=== PATIENT | female | born 1965 | race Caucasian/White ===

== ENCOUNTER → 2016-12-01 | Outpatient (CLI) | payer MEDICAID ==
[2016-12-01 07:14] LABS: Basophils # (A) 0.1 k/uL (0-0.2); Basophils % (A) 1 %; CH 29.7; CHCM 32.8; Eosinophils # (A) 0.2 k/uL (0-0.7); Eosinophils % (A) 5 %; HCT 43.8 % (34.0-46.0); HDW 2.21; HGB 14.8 gm/dL (11.4-16.0); Luc % (Auto) 4; Lymphocytes % (A) 38 %; MCH 30.8 pg (25.0-35.0); MCHC 33.9 g/dL (31.0-37.0); Mean Platelet Volume 6.8; Monocytes # (A) 0.3 k/uL (0-1.0); Monocytes % (A) 5 %; Neutrophils # (A) 2.5 k/uL (1.3-7.7); Neutrophils % (A) 47 %; RBC 4.81 m/uL (3.80-5.40); RDW 12.3 % (11.5-15.5); WBC 5.3 k/uL (3.8-10.6); WBC (Perox) 5.39
[2016-12-01 07:39] LABS: ALT 31 U/L (9-52); AST 31 U/L (14-36); Alkaline Phosphatase 89 U/L (38-126); Anion Gap 8 mmol/L; Blood Urea Nitrogen 23 mg/dL (7-17); Carbon Dioxide 29 mmol/L (22-30); Chloride 103 mmol/L (98-107); Cholesterol 252 mg/dL (<200); Glucose 92 mg/dL (74-99); HDL Cholesterol 50 mg/dL (40-60); Non-African American GFR(MDRD) >60 (>60 ml/min/1.73 sqM); Sodium 140 mmol/L (137-145); Total Bilirubin 0.4 mg/dL (0.2-1.3); Total Protein 7.6 g/dL (6.3-8.2); Triglycerides 168 mg/dL (<150)
== END | disposition home or self-care (01) ==
LOC: LABWHC1 06:38
PROVIDERS: ATTEND Family Medicine
DX: Z00.00 Encounter for general adult medical examination without abnormal findings (principal)
CPT/HCPCS: 36415; 80053; 80061; 84439; 84443; 85025

== ENCOUNTER → 2016-12-21 | Outpatient (CLI) | payer MEDICAID ==
--- NOTE | 2016-12-21 08:27 | XR ---
EXAMINATION TYPE: XR shoulder complete LT DATE OF EXAM: 12/21/2016 7:55 AM COMPARISON: NONE HISTORY: 51-year-old female with pain, evaluate for arthritis, bursitis TECHNIQUE: 3 views FINDINGS: AC joint appears congruent and intact. Subacromial space is preserved without tendinous or bursal bucky cifications. No acute fracture, subluxation, or dislocation. Visualized left hemithorax is clear. IMPRESSION: No acute osseous abnormality seen. No significant degenerative spurring.
== END | disposition home or self-care (01) ==
LOC: RADXRMAIN 07:35
PROVIDERS: ATTEND Emergency Medicine
DX: M75.52 Bursitis of left shoulder (principal); M19.012 Primary osteoarthritis, left shoulder

== ENCOUNTER → 2017-04-19 | Outpatient (CLI) | payer MEDICAID, BC ==
--- NOTE | 2017-04-19 09:46 | P.HPOB ---
History of Present Illness H&P Date: 04/19/17 Chief Complaint: The patient is here for her routine gynecologic exam and mammogram. This is a 52 year old with an LMP of 03/2016. The patient states he has been having occasional hot flashes which are not very bothersome. Certain things seem to trigger the hot flashes including wine or hot drinks. She states he has been drinking green tea which has helped her with her nerves and keeps her calm. Her 's status post vasectomy. She is otherwise without complaints. Review of Systems She has gained about 7 pounds over the last year. She denies respiratory, cardiac or G.I. problems. Past Medical History Past Medical History: No Reported History Past Surgical History: No Surgical Hx Reported Past Psychological History: No Psychological Hx Reported Smoking Status: Never smoker Past Alcohol Use History: Occasional (She has about 1 to 2 alcohol containing drinks per week.) Past Drug Use History: None Reported - Past Family History Mother Additional Family Medical History / Comment(s): Mother has heart disease and has dementia. Medications and Allergies Home Medications and Allergies Comment(s): She denies medication use. Allergies Allergy/AdvReac Type Severity Reaction Status Date / Time Penicillins Allergy Rash/Hives Verified 04/19/17 09:36 Exam - Vital Signs Vital signs: Blood pressure 137/82 height 5'4" weight 158 pounds temperature 98.6 pulse 105. This is a well-developed well-nourished white female who is alert and oriented times 3 in no acute distress. HEENT: Within normal limits. NECK: Supple without mass or thyromegaly. CHEST AND LUNGS: Clear to auscultation. HEART: Regular rate and rhythm. BREASTS: Are without mass or discharge. AXILLARY EXAM: Negative for adenopathy. BACK: Negative for CVA tenderness. ABDOMEN: Soft, nontender, without palpable masses. PELVIC EXAM: Normal external genitalia. Cervix and vagina appear normal with minimal atrophy. There is no unusual discharge. The uterus is midposition, nongravid size and nontender. There are no palpable adnexal masses or tenderness. RECTAL EXAM: recto vaginal exam is negative for mass or tenderness and is negative for occult blood. EXTREMITIES: Nontender. IMPRESSION: 1. 52 year old menopausal female with one year of amenorrhea and vasomotor symptoms. 2. Normal gynecologic exam. PLAN: 1. Pap smear was performed. 2. Self breast exam was discussed. 3. Mammogram will be done today. 4. Osteoporosis prevention was discussed. I have recommended that she take in at least 120% of the daily value of calcium. We also discussed the importance of vitamin D and regular exercise. 5. I have recommended screening colonoscopy because of her age. Dr. Sandoval's card was given to the patient for this. 6. She will return in one year.
--- NOTE | 2017-04-20 13:09 | MM ---
Reason for exam: screening (asymptomatic). Last mammogram was performed 1 year and 3 months ago. History: Patient is postmenopausal. Physical Findings: A clinical breast exam by your physician is recommended on an annual basis and results should be correlated with mammographic findings. MG 3D Screening Mammo W/Cad Bilateral CC and MLO view(s) were taken. Prior study comparison: January 05, 2016, bilateral MG screening mammo w CAD. June 11, 2008, bilateral screening mammogram free. There are scattered fibroglandular densities. No significant changes when compared with prior studies. ASSESSMENT: Negative, BI-RAD 1 RECOMMENDATION: Routine screening mammogram of both breasts in 1 year.
== END ==
LOC: WWCWWP 08:38
PROVIDERS: ATTEND Obstetrics & Gynecology
DX: Z12.31 Encounter for screening mammogram for malignant neoplasm of breast (principal)
CPT/HCPCS: 77063; G0202

== ENCOUNTER → 2017-08-22 | Outpatient (CLI) | payer MEDICAID ==
--- NOTE | 2017-08-23 08:07 | WWPN ---
[facility] - PROGRESS NOTE DATE OF DICTATION: 08/22/2017. CHIEF COMPLAINT: Light vaginal bleeding since 08/15/2017. HPI: This is a 52-year-old G3, P3 with an LMP of 03/2016. She has been amenorrheic for more than 1 year until 08/15/2017 when she started having some vaginal spotting. She states it has never developed into a period like flow. She denies any significant pelvic cramping, but has noticed some moodiness recently. She does not take any supplements or menopausal medications. She was having hot flashes, but these seem to have gotten better during the past 6 months. PAST MEDICAL HISTORY: Unremarkable. MEDICATIONS: None. ALLERGIES: PENICILLIN. REVIEW OF SYSTEMS: Unremarkable. PHYSICAL EXAM: Blood pressure 131/77, height 5 feet 4 inches, weight 156 pounds, temperature 96.4, pulse 80. This is a well-developed, well-nourished, white female, who is alert and oriented x3, in no acute distress. IMPRESSION: 52-year-old menopausal female, with a small amount of postmenopausal bleeding. PLAN: 1. We have had a long discussion regarding postmenopausal bleeding and possible causes. 2. The patient will be scheduled for an endometrial biopsy. If this is benign without significant hyperplasia, we will consider conservative management. If hyperplasia without atypia, consider cyclic progestin therapy. If cancerous or pre cancerous findings, consider hysterectomy. 3. Total time spent with the patient 15 minutes. MMODL / NILESN: [id number] /
== END | disposition home or self-care (01) ==
LOC: CANPRECLI → WWCWWP 13:54
PROVIDERS: ATTEND Obstetrics & Gynecology
DX: Z53.9 Procedure and treatment not carried out, unspecified reason (principal)

== ENCOUNTER → 2017-08-30 | Outpatient (CLI) | payer MEDICAID, BC ==
--- NOTE | 2017-08-30 11:53 | P.PCN ---
Date of Procedure: 08/30/17 Preoperative Diagnosis: Post menopausal bleeding Postoperative Diagnosis: Post menopausal bleeding Procedure(s) Performed: Endometrial biopsy Anesthesia: none Surgeon: Zachary Portillo Estimated Blood Loss (ml): 0 Pathology: other (endometrial tissue) Condition: stable Disposition: same day Indications for Procedure: This was a 52 year old female who developed light vaginal bleeding on 08/15/17 after more than one year of amenorrhea. LNMP was 03/2017. She had minimal spotting again yesterday. Operative Findings: The uterus sounded to 7.5cm. Small amount of tissue was obtained. Description of Procedure: The endometrial biopsy procedure was described to the patient. All of her questions were answered. The patient was placed in the lithotomy position. Bimanual examination was performed. The uterus is made positioned and is non- gravid size. The speculum was inserted and the cervix and vagina were prepped with betadine solution. The anterior lip of the cervix was grasped with an Allys clamp. The 3mm endometrial biopsy curette was placed to the fundus without difficulty. The uterus sounded to 7.5 cm. a [id number] rotating motion was used and a small amount of tissue was obtained and sent for pathological examination. The patient tolerated the procedure well. There were no complications. The post procedure vitals are as follows: blood pressure 129/73. pulse 85. Post procedure instructions were given to the patient.
== END ==
LOC: WWCWWP 10:54
PROVIDERS: ATTEND Obstetrics & Gynecology
DX: N91.2 Amenorrhea, unspecified (principal)
CPT/HCPCS: 88305

== ENCOUNTER 2017-11-06 08:30 | Emergency (ER) | payer MEDICAID, BC ==
[2017-11-06 08:35] VITALS: TEMP 97.9
[2017-11-06] MEDS ORDERED: SODIUM CHLORIDE 0.9% 500 ML IV STA (08:58)
--- NOTE | 2017-11-06 09:01 | ED ---
General Adult HPI - General Chief complaint: Dizziness Stated complaint: Dizziness Time Seen by Provider: 11/06/17 08:30 Source: patient, RN notes reviewed Mode of arrival: ambulatory Limitations: no limitations - History of Present Illness Initial comments: This is a 52-year-old female who comes in complaining of visual disturbance. Patient states there was a jagged line going through her physician at the top of her vision and when she looked down her vision was blurred patient states this lasted for tender 15 minutes. Patient denies any painpatient denies any itching or drainage from the eyes. Patient states the symptoms are completely gone at this time. Patient states she has no headache she's had no numbness or weakness. There was no chest pain palpitations difficulty breathing or shortness of breath. Patient states she did not feel like she was going to pass out. Patient states she was maybe a little bit nauseous. Patient denies any vomiting patient denies diarrhea patient denies any history of fever chills per patient denies any new medications. Patient states she did not eat and thought maybe her sugar was low voltage this never happened before she did take something to eat and feels better now. - Related Data Home Medications Medication Instructions Recorded Confirmed Ibuprofen 400 mg PO Q6H PRN 11/06/17 11/06/17 Allergies Allergy/AdvReac Type Severity Reaction Status Date / Time Penicillins Allergy Rash/Hives Verified 11/06/17 08:48 Review of Systems ROS Statement: Those systems with pertinent positive or pertinent negative responses have been documented in the HPI. ROS Other: All systems not noted in ROS Statement are negative. Past Medical History Past Medical History: No Reported History History of Any Multi-Drug Resistant Organisms: None Reported Past Surgical History: No Surgical Hx Reported Past Psychological History: No Psychological Hx Reported Smoking Status: Never smoker Past Alcohol Use History: Occasional Past Drug Use History: None Reported - Past Family History Mother Additional Family Medical History / Comment(s): Mother has heart disease and has dementia. General Exam - General Exam Comments Initial Comments: GENERAL: Patient is well-developed and well-nourished. Patient is nontoxic and well- hydrated and is in no acute distress. ENT: Neck is soft and supple. No significant lymphadenopathy is noted. Oropharynx is clear. Moist mucous membranes. Neck has full range of motion without eliciting any pain. EYES: The sclera were anicteric and conjunctiva were pink and moist. Extraocular movements were intact and pupils were equal round and reactive to light. Eyelids were unremarkable. PULMONARY: Unlabored respirations. Good breath sounds bilaterally. No audible rales rhonchi or wheezing was noted. CARDIOVASCULAR: There is a regular rate and rhythm without any murmurs gallops or rubs. ABDOMEN: Soft and nontender with normal bowel sounds. SKIN: Skin is clear with no lesions or rashes and otherwise unremarkable. NEUROLOGIC: Patient is alert and oriented x3. Cranial nerves II through XII are grossly intact. Motor and sensory are also intact. Normal speech, volume and content. Symmetrical smile. MUSCULOSKELETAL: Normal extremities with adequate strength and full range of motion. LYMPHATICS: No significant lymphadenopathy is noted PSYCHIATRIC: Normal psychiatric evaluation. Limitations: no limitations Course Vital Signs 11/06/17 08:31 Temperature 97.9 F Pulse Rate 90 Respiratory 18 Rate Blood Pressure 178/90 O2 Sat by Pulse 99 Oximetry Medical Decision Making - Medical Decision Making EKG shows normal sinus rhythm at a rate of 81 bpm MS interval 126 QRS is 88 QT interval 362 QTC is 420. Patient's EKG shows no ST segment elevation or depression or T wave abnormalities are noted. - Lab Data Result diagrams: 11/06/17 09:05 11/06/17 09:05 Lab Results 11/06/17 11/06/17 11/06/17 Range/Units 09:05 09:05 09:05 WBC 7.1 (3.8-10.6) k/uL RBC 4.91 (3.80-5.40) m/uL Hgb 14.9 (11.4-16.0) gm/dL Hct 42.4 (34.0-46.0) % MCV 86.4 (80.0-100.0) fL MCH 30.4 (25.0-35.0) pg MCHC 35.2 (31.0-37.0) g/dL RDW 12.6 (11.5-15.5) % Plt Count 261 (150-450) k/uL Neutrophils % 66 % Lymphocytes % 25 % Monocytes % 4 % Eosinophils % 3 % Basophils % 1 % Neutrophils # 4.7 (1.3-7.7) k/uL Lymphocytes # 1.8 (1.0-4.8) k/uL Monocytes # 0.3 (0-1.0) k/uL Eosinophils # 0.2 (0-0.7) k/uL Basophils # 0.1 (0-0.2) k/uL PT (9.0-12.0) sec INR (<1.2) APTT (22.0-30.0) sec Sodium 143 (137-145) mmol/L Potassium 4.1 (3.5-5.1) mmol/L Chloride 102 (98-107) mmol/L Carbon Dioxide 27 (22-30) mmol/L Anion Gap 14 mmol/L BUN 18 H (7-17) mg/dL Creatinine 0.86 (0.52-1.04) mg/dL Est GFR (CKD-EPI)AfAm >90 (>60 ml/min/1.73 sqM) Est GFR (CKD-EPI)NonAf 80 (>60 ml/min/1.73 sqM) Glucose 102 H (74-99) mg/dL Calcium 10.2 (8.4-10.2) mg/dL Magnesium 1.8 (1.6-2.3) mg/dL Total Bilirubin 0.6 (0.2-1.3) mg/dL AST 38 H (14-36) U/L ALT 35 (9-52) U/L Alkaline Phosphatase 97 (38-126) U/L Total Creatine Kinase 113 (30-135) U/L CK-MB (CK-2) 1.5 (0.0-2.4) ng/mL CK-MB (CK-2) Rel Index 1.3 Troponin I <0.012 (0.000-0.034) ng/mL Total Protein 8.5 H (6.3-8.2) g/dL Albumin 5.0 (3.5-5.0) g/dL Urine Color Urine Appearance (Clear) Urine pH (5.0-8.0) Ur Specific [place] (1.001-1.035) Urine Protein (Negative) Urine Glucose (UA) (Negative) Urine Ketones (Negative) Urine Blood (Negative) Urine Nitrite (Negative) Urine Bilirubin (Negative) Urine Urobilinogen (<2.0) mg/dL Ur Leukocyte Esterase (Negative) Urine RBC (0-5) /hpf Urine WBC (0-5) /hpf Urine Bacteria (None) /hpf Urine Mucus (None) /hpf Urine Opiates Screen (NotDetected) Ur Oxycodone Screen (NotDetected) Urine Methadone Screen (NotDetected) Ur Propoxyphene Screen (NotDetected) Ur Barbiturates Screen (NotDetected) U Tricyclic Antidepress (NotDetected) Ur Phencyclidine Scrn (NotDetected) Ur Amphetamines Screen (NotDetected) U Methamphetamines Scrn (NotDetected) U Benzodiazepines Scrn (NotDetected) Urine Cocaine Screen (NotDetected) U Marijuana (THC) Screen (NotDetected) 11/06/17 11/06/17 Range/Units 09:05 09:13 WBC (3.8-10.6) k/uL RBC (3.80-5.40) m/uL Hgb (11.4-16.0) gm/dL Hct (34.0-46.0) % MCV (80.0-100.0) fL MCH (25.0-35.0) pg MCHC (31.0-37.0) g/dL RDW (11.5-15.5) % Plt Count (150-450) k/uL Neutrophils % % Lymphocytes % % Monocytes % % Eosinophils % % Basophils % % Neutrophils # (1.3-7.7) k/uL Lymphocytes # (1.0-4.8) k/uL Monocytes # (0-1.0) k/uL Eosinophils # (0-0.7) k/uL Basophils # (0-0.2) k/uL PT 9.6 (9.0-12.0) sec INR 1.0 (<1.2) APTT 23.4 (22.0-30.0) sec Sodium (137-145) mmol/L Potassium (3.5-5.1) mmol/L Chloride (98-107) mmol/L Carbon Dioxide (22-30) mmol/L Anion Gap mmol/L BUN (7-17) mg/dL Creatinine (0.52-1.04) mg/dL Est GFR (CKD-EPI)AfAm (>60 ml/min/1.73 sqM) Est GFR (CKD-EPI)NonAf (>60 ml/min/1.73 sqM) Glucose (74-99) mg/dL Calcium (8.4-10.2) mg/dL Magnesium (1.6-2.3) mg/dL Total Bilirubin (0.2-1.3) mg/dL AST (14-36) U/L ALT (9-52) U/L Alkaline Phosphatase (38-126) U/L Total Creatine Kinase (30-135) U/L CK-MB (CK-2) (0.0-2.4) ng/mL CK-MB (CK-2) Rel Index Troponin I (0.000-0.034) ng/mL Total Protein (6.3-8.2) g/dL Albumin (3.5-5.0) g/dL Urine Color Yellow Urine Appearance Clear (Clear) Urine pH 5.5 (5.0-8.0) Ur Specific [place] 1.009 (1.001-1.035) Urine Protein Negative (Negative) Urine Glucose (UA) Negative (Negative) Urine Ketones Negative (Negative) Urine Blood Negative (Negative) Urine Nitrite Negative (Negative) Urine Bilirubin Negative (Negative) Urine Urobilinogen <2.0 (<2.0) mg/dL Ur Leukocyte Esterase Moderate H (Negative) Urine RBC 1 (0-5) /hpf Urine WBC 1 (0-5) /hpf Urine Bacteria Rare H (None) /hpf Urine Mucus Rare H (None) /hpf Urine Opiates Screen Not Detected (NotDetected) Ur Oxycodone Screen Not Detected (NotDetected) Urine Methadone Screen Not Detected (NotDetected) Ur Propoxyphene Screen Not Detected (NotDetected) Ur Barbiturates Screen Not Detected (NotDetected) U Tricyclic Antidepress Not Detected (NotDetected) Ur Phencyclidine Scrn Not Detected (NotDetected) Ur Amphetamines Screen Not Detected (NotDetected) U Methamphetamines Scrn Not Detected (NotDetected) U Benzodiazepines Scrn Not Detected (NotDetected) Urine Cocaine Screen Not Detected (NotDetected) U Marijuana (THC) Screen Not Detected (NotDetected) Disposition Clinical Impression: Visual disturbance Disposition: HOME SELF-CARE Condition: Good Instructions: Blurred Vision (ED) Additional Instructions: Patient should return to emergency department if there are any new recurrent or worsening symptoms Referrals: Candelaria Neal MD [Primary Care Provider] - 1-2 days Time of Disposition: 10:35
[2017-11-06 09:21] LABS: Basophils # (A) 0.1 k/uL (0-0.2); Basophils % (A) 1 %; Eosinophils # (A) 0.2 k/uL (0-0.7); Eosinophils % (A) 3 %; HCT 42.4 % (34.0-46.0); HGB 14.9 gm/dL (11.4-16.0); Lymphocytes # (A) 1.8 k/uL (1.0-4.8); Lymphocytes % (A) 25 %; MCH 30.4 pg (25.0-35.0); MCHC 35.2 g/dL (31.0-37.0); MCV 86.4 fL (80.0-100.0); Mean Platelet Volume 6.8; Monocytes # (A) 0.3 k/uL (0-1.0); Monocytes % (A) 4 %; Neutrophils # (A) 4.7 k/uL (1.3-7.7); Neutrophils % (A) 66 %; Platelet Count 261 k/uL (150-450); RBC 4.91 m/uL (3.80-5.40); RDW 12.6 % (11.5-15.5); WBC 7.1 k/uL (3.8-10.6)
[2017-11-06 09:29] LABS: Partial Thromboplastin Time 23.4 sec (22.0-30.0); Prothrombin Time 9.6 sec (9.0-12.0)
[2017-11-06 09:33] LABS: ALT 35 U/L (9-52); AST 38 U/L (14-36); Alkaline Phosphatase 97 U/L (38-126); Anion Gap 14 mmol/L; Blood Urea Nitrogen 18 mg/dL (7-17); Calcium 10.2 mg/dL (8.4-10.2); Carbon Dioxide 27 mmol/L (22-30); Chloride 102 mmol/L (98-107); Glucose 102 mg/dL (74-99); Magnesium 1.8 mg/dL (1.6-2.3); Potassium 4.1 mmol/L (3.5-5.1); Sodium 143 mmol/L (137-145); Total Bilirubin 0.6 mg/dL (0.2-1.3); Total Protein 8.5 g/dL (6.3-8.2)
[2017-11-06 09:38] LABS: Appearance,Urine Clear (Clear); Bacteria,Urine Rare /hpf; Bilirubin,Urine Negative (Negative); Blood,Urine Negative (Negative); Color,Urine Yellow; Glucose,Urine (UA) Negative (Negative); Ketones,Urine Negative (Negative); Leukocyte Esterase,Urine Moderate (Negative); Mucus,Urine Rare /hpf; Nitrite,Urine Negative (Negative); PH, Urine 5.5 (5.0-8.0); Protein,Urine Negative (Negative); RBC,Urine 1 /hpf (0-5); Specific Gravity,Urine 1.009 (1.001-1.035); Urobilinogen,Urine <2.0 mg/dL (<2.0); WBC,Urine 1 /hpf (0-5)
[2017-11-06 09:53] LABS: Creatine Kinase 113 U/L (30-135)
--- NOTE | 2017-11-06 09:55 | XR ---
EXAMINATION TYPE: XR chest 2V DATE OF EXAM: 11/06/2017 COMPARISON: NONE HISTORY: Dizziness TECHNIQUE: Frontal and lateral views of the chest are obtained. FINDINGS: There is no focal air space opacity, pleural effusion, or pneumothorax seen. The cardiac silhouette size is within normal limits. The osseous structures are intact. Minimal multilevel dege nerative changes of the thoracic spine are noted. IMPRESSION: No acute cardiopulmonary process.
--- NOTE | 2017-11-06 09:57 | CT ---
EXAMINATION TYPE: CT brain wo con DATE OF EXAM: 11/06/2017 COMPARISON: NONE HISTORY: visual changes CT DLP: 1061 mGycm Automated exposure control for dose reduction was used. Helical acquisition through the brain. FINDINGS: There is no hemorrhage or hydrocephalus. Brain density is normal. Calvarium is intact. Inflammatory c hanges present in the ethmoid air cells, sphenoid sinus. There is motion on the exam. IMPRESSION: SINUS DISEASE. NO ACUTE BRAIN ABNORMALITY, CONSIDER BRAIN MRI FOR BETTER EVALUATION INDICATED.
[2017-11-06 10:02] LABS: Amphetamine Screen,Urine Not Detected (NotDetected); Barbiturate Screen,Urine Not Detected (NotDetected); Benzodiazepines Screen,Urine Not Detected (NotDetected); Cocaine Screen,Urine Not Detected (NotDetected); Methadone Screen, Urine Not Detected (NotDetected); Opiate Screen,Urine Not Detected (NotDetected); Oxycodone Screen, Urine Not Detected (NotDetected); Phencyclidine Screen,Urine Not Detected (NotDetected); Tricyclic Antidepressant,Urine Not Detected (NotDetected); Urn Cannabinoid Scrn Not Detected (NotDetected)
[2017-11-06 10:04] LABS: Creatine Kinase MB 1.5 ng/mL (0.0-2.4); Troponin I <0.012 ng/mL (0.000-0.034)
[2017-11-06 10:44] VITALS: BP 140/77; PULSE 81; RESP 16
== END 2017-11-06 10:51 | disposition home or self-care (01) ==
LOC: EC 08:30
DX: H53.9 Unspecified visual disturbance (principal); R42 Dizziness and giddiness; Z88.0 Allergy status to penicillin
CPT/HCPCS: 36415; 70450; 71046; 80053; 80306; 81001; 82550; 82553; 83735; 84484; 85025; 85610; 85730; 93005; 96360; 99284

== ENCOUNTER → 2017-11-10 | Outpatient (CLI) | payer MEDICAID, BC ==
[2017-11-10 20:40] LABS: Cholesterol 247 mg/dL (<200); Glucose 81 mg/dL (74-99); HDL Cholesterol 51 mg/dL (40-60); LDL Cholesterol,Calculated 139 mg/dL (0-99); Triglycerides 283 mg/dL (<150)
[2017-11-11 02:25] LABS: Hemoglobin A1C 5.5 % (4.0-6.0)
== END | disposition home or self-care (01) ==
LOC: MMGSC 16:51
PROVIDERS: ATTEND Family Medicine
DX: Z00.00 Encounter for general adult medical examination without abnormal findings (principal)
CPT/HCPCS: 36415; 80061; 82947; 83036

== ENCOUNTER → 2018-10-11 | Outpatient (CLI) | payer MEDICAID, BC ==
[2018-10-11 16:51] LABS: Basophils % (A) 1 %; Eosinophils # (A) 0.2 k/uL (0-0.7); Eosinophils % (A) 3 %; HCT 41.2 % (34.0-46.0); HGB 13.4 gm/dL (11.4-16.0); Lymphocytes # (A) 2.4 k/uL (1.0-4.8); Lymphocytes % (A) 35 %; MCH 30.5 pg (25.0-35.0); MCHC 32.5 g/dL (31.0-37.0); MCV 93.8 fL (80.0-100.0); Monocytes # (A) 0.3 k/uL (0-1.0); Monocytes % (A) 5 %; Neutrophils # (A) 3.9 k/uL (1.3-7.7); Neutrophils % (A) 56 %; Platelet Count 241 k/uL (150-450); RBC 4.39 m/uL (3.80-5.40); RDW 12.6 % (11.5-15.5); WBC 6.9 k/uL (3.8-10.6)
[2018-10-11 16:55] LABS: Appearance,Urine Clear (Clear); Bilirubin,Urine Negative (Negative); Blood,Urine Negative (Negative); Color,Urine Light Yellow; Glucose,Urine (UA) Negative (Negative); Ketones,Urine Negative (Negative); Leukocyte Esterase,Urine Small (Negative); Mucus,Urine Rare /hpf; Nitrite,Urine Negative (Negative); PH, Urine 5.5 (5.0-8.0); Protein,Urine Negative (Negative); RBC,Urine 1 /hpf (0-5); Specific Gravity,Urine 1.013 (1.001-1.035); Squamous Epithelial Cell,Urine <1 /hpf (0-4); Urobilinogen,Urine <2.0 mg/dL (<2.0); WBC,Urine 6 /hpf (0-5)
[2018-10-11 17:37] LABS: Erythrocyte Sedimentation Rate 13 mm/hr (0-20)
[2018-10-11 23:13] LABS: Protein, Total 6.4 g/dL (6.2-8.2)
[2018-10-11 23:21] LABS: Vitamin D 25 Hydroxy 27.9 ng/mL (30.0-100.0)
[2018-10-12 00:23] LABS: Rheumatoid Factor 124 IU/mL (0-15)
[2018-10-12 00:24] LABS: ALT 31 U/L (8-44); AST 27 U/L (13-35); Albumin/Globulin Ratio 1.87 (1.60-3.17); Alkaline Phosphatase 109 U/L (41-126); C Reactive Protein <0.4 mg/dL (0.0-0.8); Calcium 9.2 mg/dL (8.7-10.3); Carbon Dioxide 30.6 mmol/L (21.6-31.8); Chloride 106 mmol/L (96-109); Creatine Kinase 85 U/L (26-186); Globulin 2.3 g/dL (1.6-3.3); Glucose 89 mg/dL (70-110); Potassium 3.8 mmol/L (3.5-5.5); Sodium 143 mmol/L (135-145); Total Bilirubin 0.3 mg/dL (0.3-1.2); Total Protein 6.6 g/dL (6.2-8.2); Uric Acid 4.5 mg/dL (2.9-7.7)
[2018-10-12 00:55] LABS: Hepatitis C IgG Antibody Non-Reactive (Non-Reactive)
[2018-10-12 01:33] LABS: Anti-DNA, DS unit <1.0 IU/mL; Centromere Antibody Interp POSITIVE (NEGATIVE); DNA Double-Stranded NEGATIVE (NEGATIVE)
[2018-10-12 01:34] LABS: Cyclic Citrullinated Pep IgG NEGATIVE (NEGATIVE); RNP 0.3 AI; Scleroderma SC-70 Ab <0.2 AI
[2018-10-12 01:37] LABS: Cardiolipin Ab IgG Interp NEGATIVE (NEGATIVE); Cardiolipin Ab IgM Interp NEGATIVE (NEGATIVE)
[2018-10-12 12:04] LABS: Angiotensin-1 Converting Enz. 35 U/L (8-52)
[2018-10-12 12:35] LABS: HLA B27 NEGATIVE
[2018-10-12 12:37] LABS: ANA Pattern Speckled
[2018-10-12 13:52] LABS: APTT 36 Sec(s) (<43); Dilute Russell Viper Venom 35 Sec(s) (<44)
[2018-10-12 14:42] LABS: C-ANCA <1:20 Titer (<1:20); P-ANCA <1:20 Titer (<1:20)
--- NOTE | 2018-10-12 15:03 | XR ---
EXAMINATION TYPE: XR chest 2V DATE OF EXAM: 10/11/2018 COMPARISON: None INDICATION: Rheumatoid arthritis TECHNIQUE: Frontal and lateral views of the chest are obtained. FINDINGS: The heart size is normal. The pulmonary vasculature is normal. The lungs are clear. No pleural effusions are evident. Joint spaces appear preserved. Distal clavicl es at the acromioclavicular junctions are normal. There is some scoliosis present. IMPRESSION: 1. No acute pulmonary process. 2. No suspicious changes typical for rheumatoid arthritis.
--- NOTE | 2018-10-12 15:05 | XR ---
EXAMINATION TYPE: XR ankle complete bilateral DATE OF EXAM: 10/11/2018 COMPARISON: None HISTORY: Rheumatoid arthritis, pain TECHNIQUE: 3 views each bilateral ankles FINDINGS: Plantar calcaneal heel spurs are present bilaterally. Ankle mortise is intact. Soft tissues are normal. No erosions are evident. IMPRESSION: 1. Normal appearing bilateral ankles.
--- NOTE | 2018-10-12 15:06 | XR ---
EXAMINATION TYPE: XR cervical spine comp DATE OF EXAM: 10/11/2018 COMPARISON: None HISTORY: Rheumatoid arthritis TECHNIQUE: Five-view cervical spine FINDINGS: Prevertebral space is normal. Minimal degenerative disc change may be present C5-6. Posteri or spinal lamellar line is intact. Foramen are patent. Odontoid appears unremarkable. IMPRESSION: 1. Minimal degenerative disc change C5-6. 2. No suspicious changes to suggest rheumatoid arthritis
--- NOTE | 2018-10-12 15:07 | XR ---
EXAMINATION TYPE: XR wrist complete BILATERAL DATE OF EXAM: 10/11/2018 COMPARISON: None HISTORY: Rheumatoid arthritis TECHNIQUE: Bilateral wrists are examined in 4 projections each. FINDINGS: Joint spaces are preserved. No erosions are evident. No acute fractures or dislocations are evident. Soft tissues are normal. IMPRESSION: 1. Normal bilateral wrists.
--- NOTE | 2018-10-12 15:08 | XR ---
EXAMINATION TYPE: XR hand complete bilateral DATE OF EXAM: 10/11/2018 COMPARISON: None HISTORY: Rheumatoid arthritis TECHNIQUE: 3 views bilateral hands FINDINGS: No acute fractures or dislocations are evident. Soft tissues are normal. No swelling of the digits is evident. Joint spaces appear preserved. No erosions are evident. Patient's ring is on the left hand ring finger. IMPRESSION: 1. Normal bilateral hands.
--- NOTE | 2018-10-12 15:09 | XR ---
EXAMINATION TYPE: XR knee complete bilateral DATE OF EXAM: 10/11/2018 COMPARISON: None HISTORY: Rheumatoid arthritis TECHNIQUE: 3 views bilateral knees. AP standing views were obtained FINDINGS: Joint spaces are preserved. No acute fractures or dislocations are evident. No joint effusions are ev ident. IMPRESSION: 1. Normal bilateral knees.
--- NOTE | 2018-10-12 15:11 | XR ---
EXAMINATION TYPE: XR foot complete bilateral DATE OF EXAM: 10/11/2018 COMPARISON: None HISTORY: Rheumatoid arthritis, pain TECHNIQUE: Bilateral feet are examined in 3 view each. FINDINGS: Bilateral plantar calcaneal heel spurs are present. There may be a small erosion from the p roximal medial portion proximal second digit right foot. This is nonspecific. Joint spaces otherwise appear preserved. No additional periarticular erosions are evident. Soft tissues are within normal li mits. IMPRESSION: 1. Bilateral calcaneal heel spurs. 2. No suspicious acute changes to suggest rheumatoid arthritis by radiographs.
== END | disposition home or self-care (01) ==
LOC: LABWHC1 15:42
PROVIDERS: ATTEND Internal Medicine Rheumatology
DX: M06.89 Other specified rheumatoid arthritis, multiple sites (principal); R76.8 Other specified abnormal immunological findings in serum
CPT/HCPCS: 36415; 71046; 72050; 80053; 81001; 82085; 82164; 82306; 82550; 83883; 84165; 84439; 84443; 84550; 85025; 85613; 85652; 85730; 86038; 86039; 86140; 86147; 86160; 86162; 86200; 86225; 86235; 86255; 86334; 86431; 86803; 86812; 87340

== ENCOUNTER → 2018-10-30 | Outpatient (CLI) | payer MEDICAID, BC ==
[2018-10-30 12:03] LABS: Albumin 4.3 g/dL (3.80-4.90); Albumin/Globulin Ratio 1.95 (1.60-3.17); Anion Gap 6.7 mmol/L (4.00-12.00); Calcium 9.3 mg/dL (8.7-10.3); Carbon Dioxide 29.3 mmol/L (21.6-31.8); Globulin 2.2 g/dL (1.6-3.3); LDL Cholesterol,Calculated 127.2 mg/dL (0.0-131.0); Potassium 4.4 mmol/L (3.5-5.5); Total Bilirubin 0.4 mg/dL (0.3-1.2); Total Protein 6.5 g/dL (6.2-8.2); VLDL Calculation 21.8 mg/dL (5.00-40.00)
== END ==
LOC: LABWHC1 06:42
PROVIDERS: ATTEND Family Medicine
DX: Z00.00 Encounter for general adult medical examination without abnormal findings (principal)
CPT/HCPCS: 36415; 80053; 80061

== ENCOUNTER → 2019-07-15 | Outpatient (CLI) | payer MEDICAID, BC ==
[2019-07-15 07:35] LABS: Basophils # (A) 0.1 k/uL (0-0.2); Basophils % (A) 2 %; Eosinophils # (A) 0.2 k/uL (0-0.7); Eosinophils % (A) 5 %; HCT 44.1 % (34.0-46.0); HGB 14.6 gm/dL (11.4-16.0); Lymphocytes % (A) 31 %; MCH 30.5 pg (25.0-35.0); MCV 92.4 fL (80.0-100.0); Mean Platelet Volume 6.5; Monocytes # (A) 0.2 k/uL (0-1.0); Monocytes % (A) 6 %; Neutrophils # (A) 1.7 k/uL (1.3-7.7); Neutrophils % (A) 54 %; Platelet Count 229 k/uL (150-450); RBC 4.78 m/uL (3.80-5.40); WBC 3.2 k/uL (3.8-10.6)
[2019-07-15 08:04] LABS: Appearance,Urine Clear (Clear); Bilirubin,Urine Negative (Negative); Blood,Urine Negative (Negative); Color,Urine Colorless; Glucose,Urine (UA) Negative (Negative); Ketones,Urine Negative (Negative); Leukocyte Esterase,Urine Negative (Negative); Nitrite,Urine Negative (Negative); PH, Urine 6.5 (5.0-8.0); Protein,Urine Negative (Negative); Specific Gravity,Urine 1.004 (1.001-1.035); Urobilinogen,Urine <2.0 mg/dL (<2.0)
[2019-07-15 10:49] LABS: Erythrocyte Sedimentation Rate 6 mm/hr (0-20)
[2019-07-15 11:24] LABS: Protein, Total 6.6 g/dL (6.2-8.2)
[2019-07-15 11:45] LABS: Complement C3 99.9 mg/dL (80.0-207.0)
[2019-07-15 11:57] LABS: Anti-DNA, DS unit <1.0 IU/mL; Anti-Smith Ab Interp NEGATIVE (NEGATIVE); Cardiolipin Ab IgG Interp NEGATIVE (NEGATIVE); Cardiolipin Ab IgM Interp NEGATIVE (NEGATIVE); Cardiolipin IgA Antibody 2.8 U/mL; Cardiolipin IgM Antibody 0.6 U/mL; Centromere Antibody 3.5 AI; Centromere Antibody Interp POSITIVE (NEGATIVE); Cyclic Citrull Pep IgG Unit <0.5 U/mL; Cyclic Citrullinated Pep IgG NEGATIVE (NEGATIVE); DNA Double-Stranded NEGATIVE (NEGATIVE); Scleroderma SC-70 Ab <0.2 AI
[2019-07-15 12:27] LABS: ALT 31 U/L (8-44); AST 34 U/L (13-35); African American GFR (CKD) 98.2 (60.0-200.0); Albumin/Globulin Ratio 1.95 (1.60-3.17); Alkaline Phosphatase 69 U/L (41-126); BUN/Creat Ratio 18.75 Ratio (12.00-20.00); C Reactive Protein <0.4 mg/dL (0.0-0.8); Calcium 9.1 mg/dL (8.7-10.3); Carbon Dioxide 28.9 mmol/L (21.6-31.8); Chloride 103 mmol/L (96-109); Creatine Kinase 108 U/L (26-186); Globulin 2.2 g/dL (1.6-3.3); Glucose 86 mg/dL (70-110); Non-African American GFR(CKD) 84.8 (60.0-200.0); Potassium 4.6 mmol/L (3.5-5.5); Rheumatoid Factor, Qnt 134 IU/mL (0-15); Sodium 138 mmol/L (135-145); Total Bilirubin 0.4 mg/dL (0.2-1.2); Total Protein 6.5 g/dL (6.2-8.2); Uric Acid 5.3 mg/dL (2.9-7.7)
[2019-07-15 13:43] LABS: Free Kappa Lt Chain Qnt, Serum 1.44 mg/dL (0.33-1.94)
[2019-07-15 18:53] LABS: Hepatitis B Surface Antigen Non-Reactive (Non-Reactive); Hepatitis C IgG Antibody Non-Reactive (Non-Reactive)
[2019-07-16 10:18] LABS: HLA B27 NEGATIVE
[2019-07-16 11:43] LABS: Histone Antibody 1.3 UNITS (<1.0)
[2019-07-16 12:19] LABS: APTT 36 Sec(s) (<43); Dilute Russell Viper Venom 34 Sec(s) (<44)
[2019-07-16 13:02] LABS: Albumin 4.13 g/dL (3.80-4.90); Gamma Globulin 0.94 g/dL (0.70-1.50)
[2019-07-16 13:36] LABS: Angiotensin-1 Converting Enz. 54 U/L (8-52)
[2019-07-16 13:46] LABS: C-ANCA <1:20 Titer (<1:20)
== END | disposition home or self-care (01) ==
LOC: LABWHC1 06:44
PROVIDERS: ATTEND Internal Medicine Rheumatology
DX: M06.89 Other specified rheumatoid arthritis, multiple sites (principal)
CPT/HCPCS: 36415; 80053; 81003; 82088; 82164; 82306; 82550; 83516; 83883; 84165; 84439; 84443; 84550; 85025; 85613; 85652; 85730; 86038; 86140; 86147; 86160; 86162; 86200; 86225; 86235; 86255; 86334; 86431; 86803; 86812; 87340

== ENCOUNTER → 2019-10-25 | Outpatient (CLI) | payer MEDICAID, BC ==
[2019-10-25 07:14] LABS: HCT 44.8 % (34.0-46.0); HGB 14.5 gm/dL (11.4-16.0); MCH 29.8 pg (25.0-35.0); MCHC 32.4 g/dL (31.0-37.0); MCV 92.1 fL (80.0-100.0); Mean Platelet Volume 7.3; Platelet Count 229 k/uL (150-450); RBC 4.86 m/uL (3.80-5.40); RDW 12.2 % (11.5-15.5); WBC 4.3 k/uL (3.8-10.6)
[2019-10-25 10:47] LABS: African American GFR (CKD) 85.2 (60.0-200.0); Albumin 4.5 g/dL (3.80-4.90); Albumin/Globulin Ratio 2.05 (1.60-3.17); Anion Gap 6.5 mmol/L (4.00-12.00); Calcium 9.5 mg/dL (8.7-10.3); Carbon Dioxide 29.5 mmol/L (21.6-31.8); Chol/HDL Ratio 2.8; Globulin 2.2 g/dL (1.6-3.3); LDL Cholesterol,Calculated 117.8 mg/dL (0.0-131.0); Non-African American GFR(CKD) 73.5 (60.0-200.0); Potassium 4.6 mmol/L (3.5-5.5); Total Bilirubin 0.5 mg/dL (0.2-1.2); Total Protein 6.7 g/dL (6.2-8.2); VLDL Calculation 19.2 mg/dL (5.00-40.00)
== END | disposition home or self-care (01) ==
LOC: LABWHC1 06:32
PROVIDERS: ATTEND Physician Assistant
DX: Z00.00 Encounter for general adult medical examination without abnormal findings (principal); E78.5 Hyperlipidemia, unspecified
CPT/HCPCS: 36415; 80053; 80061; 85027

== ENCOUNTER → 2020-01-06 | Outpatient (CLI) | payer MEDICAID, BC ==
[2020-01-06 10:25] LABS: Basophils # (A) 0.1 k/uL (0-0.2); Basophils % (A) 1 %; Eosinophils # (A) 0.2 k/uL (0-0.7); Eosinophils % (A) 5 %; HCT 45.1 % (34.0-46.0); HGB 14.4 gm/dL (11.4-16.0); Lymphocytes # (A) 1.3 k/uL (1.0-4.8); Lymphocytes % (A) 30 %; MCH 29.5 pg (25.0-35.0); MCHC 31.9 g/dL (31.0-37.0); MCV 92.5 fL (80.0-100.0); Mean Platelet Volume 7.3; Monocytes # (A) 0.3 k/uL (0-1.0); Monocytes % (A) 6 %; Neutrophils # (A) 2.4 k/uL (1.3-7.7); Neutrophils % (A) 57 %; Platelet Count 237 k/uL (150-450); RBC 4.88 m/uL (3.80-5.40); RDW 12.5 % (11.5-15.5); WBC 4.3 k/uL (3.8-10.6)
[2020-01-06 13:03] LABS: Erythrocyte Sedimentation Rate 11 mm/hr (0-20)
[2020-01-06 16:29] LABS: ALT 33 U/L (8-44); AST 34 U/L (13-35); African American GFR (CKD) 98.2 (60.0-200.0); BUN/Creat Ratio 18.75 Ratio (12.00-20.00); C Reactive Protein <0.4 mg/dL (0.0-0.8); Calcium 9.8 mg/dL (8.7-10.3); Carbon Dioxide 29.2 mmol/L (21.6-31.8); Chloride 104 mmol/L (96-109); Glucose 87 mg/dL (70-110); Non-African American GFR(CKD) 84.8 (60.0-200.0); Potassium 5.2 mmol/L (3.5-5.5); Sodium 145 mmol/L (135-145)
== END | disposition home or self-care (01) ==
LOC: LABWHC1 09:08
PROVIDERS: ATTEND Physician Assistant
DX: Z51.81 Encounter for therapeutic drug level monitoring (principal); Z79.899 Other long term (current) drug therapy
CPT/HCPCS: 36415; 80048; 84450; 84460; 85025; 85652; 86140

== ENCOUNTER → 2020-02-25 | Outpatient (CLI) | payer MEDICAID, BC ==
--- NOTE | 2020-02-26 10:03 | ECHOF ---
Referral Reason:M34.9 Systemic Sclerosis MEASUREMENTS -------- HEIGHT: 162.6 cm WEIGHT: 63.5 kg BP: RVIDd: 3.6 cm (< 3.3) IVSd: 1.1 cm (0.6 - 1.1) LVIDd: 3.5 cm (3.9 - 5.3) LVPWd: 1.2 cm (0.6 - 1.1) IVSs: 1.3 cm LVIDs: 2.4 cm LVPWs: 1.7 cm LAESV Index (A-L): 19.99 ml/m Ao Diam: 2.6 cm (2.0 - 3.7) AV Cusp: 1.7 cm (1.5 - 2.6) MV EXCURSION: 20.954 mm (> 18.000) MV EF SLOPE: 124 mm/s (70 - 150) EPSS: 0.3 cm MV E Sammy: 0.84 m/s MV DecT: 161 ms MV A Sammy: 0.63 m/s MV E/A Ratio: 1.32 AR PHT: 406 ms RAP: 5.00 mmHg RVSP: 27.08 mmHg FINDINGS -------- Sinus rhythm. This was a technically adequate study. The left ventricular size is normal. There is mild concentric left ventricular hypertrophy. Overa ll left ventricular systolic function is normal with, an EF between 55 - 60 %. The diastolic fillin g pattern is normal for the age of the patient 7.93. The right ventricle is mildly enlarged. Normal LA size by volume 22+/-6 ml/m2. The right atrial size is normal. Interatrial and interventricular septum intact. There is mild aortic valve sclerosis. There is mild aortic regurgitation. There is no evidence of aortic stenosis. The mitral valve is normal. Mild mitral regurgitation is present. Mild tricuspid regurgitation present. There is no evidence of pulmonary hypertension. The right v entricular systolic pressure, as measured by Doppler, is 27.08mmHg. There is no pulmonic regurgitation present. The aortic root size is normal. The inferior vena cava is mildly dilated. There is no pericardial effusion. CONCLUSIONS -------- 1. There is mild concentric left ventricular hypertrophy. 2. Overall left ventricular systolic function is normal with, an EF between 55 - 60 %. 3. The diastolic filling pattern is normal for the age of the patient 7.93 4. The right ventricle is mildly enlarged. 5. Normal LA size by volume 22+/-6 ml/m2. 6. There is mild aortic valve sclerosis. 7. There is mild aortic regurgitation. 8. Mild mitral regurgitation is present. 9. Mild tricuspid regurgitation present. 10. There is no pulmonic regurgitation present. 11. The inferior vena cava is mildly dilated. 12. There is no pericardial effusion. SALES ASSISTANT [employer]STIT[employer] SALES: Yoselin Guadarrama RDCS
== END | disposition home or self-care (01) ==
LOC: RADECHMAIN 13:48
PROVIDERS: ATTEND Physician Assistant
DX: I08.3 Combined rheumatic disorders of mitral, aortic and tricuspid valves (principal)
CPT/HCPCS: 93306

== ENCOUNTER → 2020-05-27 | Outpatient (CLI) | payer MEDICAID, BC | END | disposition home or self-care (01) | LOC: CPPFTMAIN 13:14 | PROVIDERS: ATTEND Nurse Practitioner Family | DX: M34.9 Systemic sclerosis, unspecified (principal) | CPT/HCPCS: 94060; 94726; 94729 ==

== ENCOUNTER → 2020-10-21 | Outpatient (CLI) | payer MEDICAID, BC ==
[2020-10-21 10:32] LABS: HCT 41.7 % (37.2-46.3); HGB 13.6 g/dL (12.0-15.0); MCH 30.2 pg (27.0-32.0); MCHC 32.6 g/dL (32.0-37.0); MCV 92.5 fL (80.0-97.0); Mean Platelet Volume 10.6 fL (9.5-12.2); Platelet Count 241 X 10*3/uL (140-440); RBC 4.51 X 10*6/uL (4.10-5.20); RDW 12.3 % (11.5-14.5); WBC 3.83 X 10*3/uL (4.50-10.00)
[2020-10-21 10:48] LABS: African American GFR (CKD) 97.6 (60.0-200.0); Albumin 4.6 g/dL (3.80-4.90); Albumin/Globulin Ratio 1.84 (1.60-3.17); Anion Gap 8.8 mmol/L (4.00-12.00); Calcium 9.5 mg/dL (8.7-10.3); Carbon Dioxide 27.2 mmol/L (21.6-31.8); Chol/HDL Ratio 3.43; Globulin 2.5 g/dL (1.6-3.3); LDL Cholesterol,Calculated 127.4 mg/dL (0.0-131.0); Non-African American GFR(CKD) 84.2 (60.0-200.0); Potassium 4.6 mmol/L (3.5-5.5); Total Bilirubin 0.3 mg/dL (0.2-1.2); Total Protein 7.1 g/dL (6.2-8.2); VLDL Calculation 18.6 mg/dL (5.00-40.00)
== END | disposition home or self-care (01) ==
LOC: LABWHC1 06:48
PROVIDERS: ATTEND Physician Assistant
DX: Z00.00 Encounter for general adult medical examination without abnormal findings (principal); M34.9 Systemic sclerosis, unspecified
CPT/HCPCS: 36415; 80053; 80061; 84443; 85027

== ENCOUNTER → 2021-04-22 | Outpatient (CLI) | payer MEDICAID, BC ==
[2021-04-22 12:08] LABS: HCT 42.7 % (37.2-46.3); MCH 30.4 pg (27.0-32.0); MCHC 32.8 g/dL (32.0-37.0); MCV 92.6 fL (80.0-97.0); Mean Platelet Volume 10.8 fL (9.5-12.2); Platelet Count 218 X 10*3/uL (140-440); RBC 4.61 X 10*6/uL (4.10-5.20)
[2021-04-22 14:42] LABS: African American GFR (CKD) 96.9 (60.0-200.0); Albumin 4.2 g/dL (3.80-4.90); Albumin/Globulin Ratio 1.75 (1.60-3.17); BUN/Creat Ratio 22.5 Ratio (12.00-20.00); Calcium 9.2 mg/dL (8.7-10.3); Chol/HDL Ratio 3.4; Globulin 2.4 g/dL (1.6-3.3); LDL Cholesterol,Calculated 103.4 mg/dL (0.0-131.0); Non-African American GFR(CKD) 83.6 (60.0-200.0); Potassium 4.5 mmol/L (3.5-5.5); Total Bilirubin 0.4 mg/dL (0.2-1.2); Total Protein 6.6 g/dL (6.2-8.2); VLDL Calculation 33.6 mg/dL (5.00-40.00)
== END | disposition home or self-care (01) ==
LOC: LABWHC1 06:59
PROVIDERS: ATTEND Family Medicine
DX: M35.1 Other overlap syndromes (principal); M34.9 Systemic sclerosis, unspecified; R74.8 Abnormal levels of other serum enzymes
CPT/HCPCS: 36415; 80053; 80061; 84443; 85027

== ENCOUNTER → 2021-06-09 | Outpatient (CLI) | payer MEDICAID, BC ==
--- NOTE | 2021-06-10 09:55 | MM ---
Reason for exam: screening (asymptomatic). Last mammogram was performed 4 years and 2 months ago. History: Patient is postmenopausal. Physical Findings: A clinical breast exam by your physician is recommended on an annual basis and results should be correlated with mammographic findings. MG 3D Screening Mammo W/Cad Bilateral CC and MLO view(s) were taken. Prior study comparison: April 19, 2017, bilateral MG 3d screening mammo w/cad. January 05, 2016, bilateral MG screening mammo w CAD. The breast tissue is heterogeneously dense. This may lower the sensitivity of mammography. There is no discrete abnormality. No significant changes when compared with prior studies. ASSESSMENT: Negative, BI-RAD 1 RECOMMENDATION: Routine screening mammogram of both breasts in 1 year.
== END | disposition home or self-care (01) ==
LOC: RADMAMWWP 07:11
PROVIDERS: ATTEND Family Medicine
DX: Z12.31 Encounter for screening mammogram for malignant neoplasm of breast (principal); Z78.0 Asymptomatic menopausal state
CPT/HCPCS: 77063; 77067

== ENCOUNTER → 2021-10-29 | Outpatient (CLI) | payer MEDICAID, BC ==
[2021-10-29 11:52] LABS: HCT 42.7 % (37.2-46.3); HGB 13.8 g/dL (12.0-15.0); MCH 29.8 pg (27.0-32.0); MCHC 32.3 g/dL (32.0-37.0); MCV 92.2 fL (80.0-97.0); Mean Platelet Volume 10.4 fL (9.5-12.2); NRBC Per 100 WBC 0 /100 WBCS (0.0-0.0); Platelet Count 251 X 10*3/uL (140-440); RBC 4.63 X 10*6/uL (4.10-5.20); RDW 12.9 % (11.5-14.5); WBC 3.61 X 10*3/uL (4.50-10.00)
[2021-10-29 12:08] LABS: ALT 31 U/L (8-44); AST 32 U/L (13-35); African American GFR (CKD) 96.9 (60.0-200.0); Albumin 4.5 g/dL (3.8-4.9); Albumin/Globulin Ratio 1.73 (1.60-3.17); Alkaline Phosphatase 76 U/L (41-126); BUN/Creat Ratio 16.75 Ratio (12.00-20.00); Blood Urea Nitrogen 13.4 mg/dL (9.0-27.0); Calcium 9.1 mg/dL (8.7-10.3); Carbon Dioxide 23.3 mmol/L (20.0-27.5); Chloride 103 mmol/L (96-109); Chol/HDL Ratio 3.86 Ratio; Globulin 2.6 g/dL (1.6-3.3); Glucose 90 mg/dL (70-110); LDL Cholesterol,Calculated 130.4 mg/dL (0.0-131.0); Non-African American GFR(CKD) 83.6 (60.0-200.0); Potassium 4.3 mmol/L (3.5-5.5); Sodium 139 mmol/L (135-145); Total Protein 7.1 g/dL (6.2-8.2)
== END | disposition home or self-care (01) ==
LOC: LABWHC1 07:02
PROVIDERS: ATTEND Physician Assistant
DX: Z00.00 Encounter for general adult medical examination without abnormal findings (principal); M34.9 Systemic sclerosis, unspecified; E66.3 Overweight
CPT/HCPCS: 36415; 80053; 80061; 84443; 85027

== ENCOUNTER → 2022-02-04 | Outpatient (CLI) | payer OTHER ==
--- NOTE | 2022-02-04 14:31 | XR ---
EXAMINATION TYPE: XR chest 2V, XR ribs RT DATE OF EXAM: 02/04/2022 COMPARISON: NONE HISTORY: Shortness of breath TECHNIQUE: Frontal and lateral views of the chest are obtained. FINDINGS: Scattered senescent parenchymal changes noted. No evidence for infiltrate. No evidence for atelectasis. Heart size is stable. Mediastinal structures are stable and grossly unremarkable. No evidence for hilar prominence. Degenerative changes dorsal spine. IMPRESSION: 1. No evidence for acute pulmonary disease. EXAMINATION TYPE: XR chest 2V, XR ribs RT DATE OF EXAM: 02/04/2022 CLINICAL HISTORY: Pain, Fall Four views of the ribs fail demonstrate evidence for displaced rib fracture or secondary sign of rib fracture. Visualized lungs are clear. No evidence for pneumothorax. IMPRESSION: 1. No displaced rib fractures seen. ICD 10 NO FRACTURE, INITIAL EVALUATION
== END | disposition home or self-care (01) ==
LOC: RADXRMAIN 14:03
PROVIDERS: ATTEND Emergency Medicine
DX: S29.9XXA Unspecified injury of thorax, initial encounter (principal); R06.02 Shortness of breath; W19.XXXA Unspecified fall, initial encounter
CPT/HCPCS: 71046

== ENCOUNTER → 2022-07-19 | Outpatient (CLI) | payer MEDICAID, BC ==
[2022-07-19 08:37] VITALS: BP 135/86; PULSE 84; RESP 17; TEMP 97.9
--- NOTE | 2022-07-19 09:20 | P.HPOB ---
History of Present Illness H&P Date: 07/19/22 Chief Complaint: The patient is here for her routine gynecologic exam and ma mmogram. This is a 57-year-old with an LMP of 2016. The patient is without gynecologic complaints and denies any postmenopausal bleeding. Review of Systems She has lost about 5 pounds over the past 4 years. She denies respiratory or cardiac problems. GI: Certain foods seem to bother her digestive tract. She thinks she may be lactose intolerant. Past Medical History Additional Past Medical History / Comment(s): Mixed tissue scleroderma. 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 She is status post cervical conization for dysplasia in 1995. History of Any Multi-Drug Resistant Organisms: None Reported Additional Past Surgical History / Comment(s): Conization of the cervix in 1995. Past Psychological History: No Psychological Hx Reported Smoking Status: Never smoker Past Alcohol Use History: Occasional (2 per week) Past Drug Use History: None Reported Additional History: She has been since 2000 and this is her second marriage. She works at [employer] in [place]. - Past Family History Mother Additional Family Medical History / Comment(s): Mother has heart disease and has dementia. Father Family Medical History: No Reported History Medications and Allergies Home Medications Medication Instructions Recorded Confirmed Type Ibuprofen 400 mg PO Q6H PRN 11/06/17 11/06/17 History Hydroxychloroquine Sulfate 200 mg PO BID 07/19/22 07/19/22 History [Plaquenil] Allergies Allergy/AdvReac Type Severity Reaction Status Date / Time Penicillins Allergy Rash/Hives Verified 07/19/22 08:30 Exam Vital Signs Temp Pulse Resp BP Pulse Ox 07/19/22 08:33 97.9 F 84 17 135/86 98 Intake and Output 07/18/22 07/19/22 07/19/22 22:59 06:59 14:59 Other: Weight 68.492 kg Height 5 feet 4 inches, weight 151 pounds, BMI 25.9. This is a well-developed well-nourished white female who is alert and oriented times 3 in no acute distress. HEENT: Within normal limits. NECK: Supple without mass or thyromegaly. CHEST AND LUNGS: Clear to auscultation. HEART: Regular rate and rhythm. BREASTS: Are without mass or discharge. AXILLARY EXAM: Negative for adenopathy. BACK: Negative for CVA tenderness. ABDOMEN: Soft, nontender, without palpable masses. PELVIC EXAM: Normal external genitalia. Cervix and vagina appear normal with minimal atrophy. There is no unusual discharge. There is no evidence of prolapse. The uterus is midposition, nongravid size and nontender. There are no palpable adnexal masses or tenderness. RECTAL EXAM: Rectovaginal exam is negative for mass or tenderness and is negative for occult blood. EXTREMITIES: Nontender. IMPRESSION: 1. 57-year-old menopausal female with normal gynecologic exam. PLAN: 1. Pap smear cotest was performed. 2. Self breast awareness was discussed with the patient. We have also discussed symptoms associated with inflammatory breast cancer. 3. Screening mammogram was done today. 4. Osteoporosis prevention was discussed. I have stressed the importance of adequate calcium, vitamin D and regular exercise. Recommended amounts of calcium and vitamin D were also discussed. 5. She has not received Covid vaccination. She has had Covid 3 times and they were all minor illnesses. 6. She was advised to return in one year for her annual well woman exam.
--- NOTE | 2022-07-20 08:30 | MM ---
Reason for Exam: Screening (asymptomatic). Last mammogram was performed 1 year(s) and 1 month(s) ago. Patient History: Menarche at age 13. First Full-Term at age 30. Postmenopausal. Risk Values: Marianne 5 year model risk: 1.4%. NCI Lifetime model risk: 9.9%. Prior Study Comparison: 01/05/2016 Bilateral Screening Mammogram, [facility]. 04/19/2017 Bilateral Screening Mammogram, [facility]. 06/09/2021 Bilateral Screening Mammogram, [facility]. Tissue Density: The breast tissue is heterogeneously dense. This may lower the sensitivity of mammography. Findings: Analyzed By CAD. There is no suspicious group of microcalcifications or new suspicious mass in either breast. Overall Assessment: Negative, BI-RAD 1 Management: Screening Mammogram of both breasts in 1 year. A clinical breast exam by your physician is recommended on an annual basis and results should be correlated with mammographic findings. Electronically signed and approved by: Rolando Enriquez M.D. [facility]iolog[facility]
== END | disposition home or self-care (01) ==
LOC: RADMAMWWP 08:11
PROVIDERS: ATTEND Obstetrics & Gynecology
DX: Z12.31 Encounter for screening mammogram for malignant neoplasm of breast (principal); Z28.310 Unvaccinated for COVID-19; Z82.49 Family history of ischemic heart disease and other diseases of the circulatory system; Z88.0 Allergy status to penicillin
CPT/HCPCS: 77063; 77067

== ENCOUNTER → 2022-11-02 | Outpatient (CLI) | payer MEDICAID, BC ==
[2022-11-02 11:13] LABS: HCT 41.6 % (37.2-46.3); HGB 13.6 g/dL (12.0-15.0); MCH 29.8 pg (27.0-32.0); MCHC 32.7 g/dL (32.0-37.0); Mean Platelet Volume 10.3 fL (9.5-12.2); NRBC Per 100 WBC 0 /100 WBCS (0.0-0.0); Platelet Count 239 X 10*3/uL (140-440); RBC 4.57 X 10*6/uL (4.10-5.20); RDW 12.4 % (11.5-14.5); WBC 3.94 X 10*3/uL (4.50-10.00)
[2022-11-02 11:33] LABS: ALT 29 U/L (8-44); AST 30 U/L (13-35); Albumin 4.3 g/dL (3.8-4.9); Albumin/Globulin Ratio 1.79 (1.60-3.17); Alkaline Phosphatase 76 U/L (41-126); BUN/Creat Ratio 17.86 Ratio (12.00-20.00); Blood Urea Nitrogen 12.5 mg/dL (9.0-27.0); Carbon Dioxide 24.2 mmol/L (20.0-27.5); Chloride 104 mmol/L (96-109); Chol/HDL Ratio 4.05 Ratio; Globulin 2.4 g/dL (1.6-3.3); Glucose 89 mg/dL (70-110); LDL Cholesterol,Calculated 122.5 mg/dL (0.0-131.0); Non-African American GFR(CKD) 97.5 (60.0-200.0); Potassium 4.4 mmol/L (3.5-5.5); Sodium 139 mmol/L (135-145); Total Protein 6.7 g/dL (6.2-8.2)
[2022-11-02 13:34] LABS: INR 0.89 (0.90-1.11); Prothrombin Time 10.1 sec (9.9-11.9)
== END | disposition home or self-care (01) ==
LOC: LABWHC1 06:50
PROVIDERS: ATTEND Family Medicine
DX: Z01.810 Encounter for preprocedural cardiovascular examination (principal); M21.611 Bunion of right foot; E66.3 Overweight; M34.9 Systemic sclerosis, unspecified
CPT/HCPCS: 36415; 80053; 80061; 84443; 85027; 85610

== ENCOUNTER → 2023-11-07 | Outpatient (CLI) | payer MEDICAID, BC ==
[2023-11-07 11:21] LABS: HCT 42.9 % (37.2-46.3); HGB 14.5 g/dL (12.0-15.0); MCH 30.7 pg (27.0-32.0); MCHC 33.8 g/dL (32.0-37.0); MCV 90.7 FL (80.0-97.0); Mean Platelet Volume 10.3 FL (9.5-12.2); NRBC Per 100 WBC 0 X 10*3/uL (0.00-0.01); Platelet Count 241 X 10*3/uL (140-440); RBC 4.73 X 10*6/uL (4.10-5.20); RDW 12.5 % (11.5-14.5); WBC 3.95 X 10*3/uL (4.50-10.00)
[2023-11-07 11:54] LABS: ALT 34 U/L (8-44); AST 35 U/L (13-35); Albumin 4.4 g/dL (3.8-4.9); Albumin/Globulin Ratio 1.83 Ratio (1.60-3.17); Alkaline Phosphatase 84 U/L (41-126); Blood Urea Nitrogen 12.8 mg/dL (9.0-27.0); Carbon Dioxide 27.6 mmol/L (21.6-31.8); Chloride 103 mmol/L (96-109); Chol/HDL Ratio 3.39 Ratio; Globulin 2.4 g/dL (1.6-3.3); Glucose 97 mg/dL (70-110); LDL Cholesterol,Calculated 101.6 mg/dL (0.0-131.0); Sodium 141 mmol/L (135-145); Total Bilirubin <0.2 mg/dL (0.3-1.2); Total Protein 6.8 g/dL (6.2-8.2)
[2023-11-07 12:37] LABS: INR 0.97 sec (0.93-1.11); Prothrombin Time 10.5 sec (9.9-11.9)
== END | disposition home or self-care (01) ==
LOC: LABWHC1 06:56
PROVIDERS: ATTEND Family Medicine
DX: Z01.812 Encounter for preprocedural laboratory examination (principal); E66.3 Overweight; E78.5 Hyperlipidemia, unspecified; M34.9 Systemic sclerosis, unspecified
CPT/HCPCS: 36415; 80053; 80061; 84443; 85027; 85610